=== PATIENT | female | born 1950 | race Caucasian/White ===

== ENCOUNTER 2018-03-18 20:36 | Emergency (ER) | payer OTHER ==
[~2018-03-18] VITALS: Ht 167.6 cm; Wt 65.8 kg
[2018-03-18 20:40] VITALS: BP 169/137
[2018-03-18] MEDS ORDERED: SODIUM BICARBONATE 8.4% INJ 50ML SYRINGE ONE (20:56)
== END 2018-03-18 21:37 | disposition expired ==
LOC: EDBD 20:36 → ER 20:39
DX: I46.9 Cardiac arrest, cause unspecified (principal); N18.6 End stage renal disease; E11.22 Type 2 diabetes mellitus with diabetic chronic kidney disease; I25.2 Old myocardial infarction; Z99.2 Dependence on renal dialysis
CPT/HCPCS: 92950